=== PATIENT | male | born 1955 | race Caucasian/White ===

== ENCOUNTER 2017-12-05 17:20 | Observation (INO) | payer OTHER ==
[~2017-12-05] VITALS: Ht 175.3 cm; Wt 101.6 kg
[~2017-12-05 17:20] MED LIST: BYSTOLIC10 MG PO; COLCRYS0.6 MG PO; HYDROCODONE BIT1 T13 PO; LOSARTAN POTASS50 MG PO; NEXIUM 40MG40 MG PO; PERCOCET 325 MG1 TA2 PO; ROXICODONE5 MG PO; SIMVASTATIN40 MG PO; VENLAFAXINE H37.5 M1 PO; ZOCOR 40MG TAB40 MG PO
--- NOTE | 2017-12-05 18:46 | ED DYSPNEA/ASTHMA COMPLAINT ---
History of Present Illness General Chief Complaint: Upper Respiratory Sx/Fever Stated Complaint: COUGH/URI Source: patient Exam Limitations: no limitations Allergies Coded Allergies: No Known Allergies (12/05/17) Reconcile Medications Albuterol Sulfate (Proventil Hfa) 90 MCG HFA.AER.AD 2 PUF INH Q4 cough Azithromycin (Zithromax) 250 MG TABLET 1 DP PO AD bronchitis 2 the first day followed by 1 for days 2-5 Benzonatate 200 MG CAPSULE 1 CAP PO TIDPRN cough Chlordiazepoxide HCl 25 MG CAPSULE 2 CAP PO AD ETOH 2 TABS THREE TIMES DAILY DAY 1 2 TABS TWICE DAILY DAY 2 2 TABS ONCE DAILY DAY 3 Cyanocobalamin (Vitamin B-12) (Unknown Strength) TABLET (Unknown Dose) PO DAILY SUPPLEMENT (Reported) Ergocalciferol (Vitamin D2) (Vitamin D2) 50,000 UNIT CAPSULE 1 CAP PO QFRI SUPPLEMENT (Reported) Esomeprazole (Nexium) 40 MG CAPSULE.DR 1 CAP PO DAILY GI (Reported) Folic Acid 1 MG TABLET 1 TAB PO DAILY SUPPLEMENT (Reported) Losartan Potassium 100 MG TABLET 1 TAB PO DAILY HEART/BP (Reported) Metformin HCl 1,000 MG TABLET 1 TAB PO DAILY DM (Reported) Nebivolol HCl (Bystolic) 10 MG TABLET 1 TAB PO DAILY HEART/BP (Reported) Saw Hamilton Fruit (Saw Hamilton) (Unknown Strength) CAPSULE (Unknown Dose) PO BID (Reported) Triage Note: PT TO ED WITH FOR C/C OF COUGH X 2 WEEKS, OVER THE LAST COUPLE OF DAYS COUGHING UP BLOOD. -N/-V/-D. PT HAS HISTORY OF ESOPHAGECTOMY WITH AND HAS HAD BAD HICCUPS FOR ABOUT 2 DAYS. PT DIAPHORETIC AND TEMP 100.7 IN TRIAGE. DENIES CHEST PAIN. Triage Nurses Notes Reviewed? yes Onset: Abrupt Duration: week(s): (2), constant, continues in ED Timing: recent history HPI: 62-year-old male comes into the emergency room for further evaluation of shortness of breath and cough has been going on for the past 2 weeks. Symptoms have gotten progressively worse. Patient is now had hemoptysis over the last few days. He's had associated fever chills body aches. He's had increasing shortness of breath. He denies any chest pain. He has a prior history of 30- pack-year. History of esophageal cancer. Denies any other associated symptoms. (Wade Easton) Vital Signs & Intake/Output Vital Signs & Intake/Output Vital Signs Date Time Temp Pulse Resp B/P B/P Pulse O2 O2 Flow FiO2 Mean Ox Delivery Rate 12/06 0749 98.6 109 16 130/74 96 Room Air 12/06 0605 100.4 109 18 119/68 12/06 0602 100.4 109 18 119/68 96 12/06 0300 99.0 104 18 158/75 12/06 0253 99.0 104 18 158/75 96 12/06 0014 99.9 105 24 153/75 12/05 2301 99.3 107 22 155/88 95 12/05 2041 98.4 98 18 135/72 96 12/05 2013 97 ED Intake and Output 12/06 0000 12/05 1200 Intake Total 120 Output Total Balance 120 Intake, Oral 120 Patient 224 lb Weight Weight Reported by Patient Measurement Method (Kaushik TONY,Barrera Madison) Past History Travel History Traveled to [place] past 21 day No Medical History Any Pertinent Medical History? see below for history Neurological: NONE EENT: NONE Cardiovascular: hypertension, hyperlipidemia Respiratory: NONE Gastrointestinal: NONE Hepatic: NONE Renal: NONE Musculoskeletal: fracture Psychiatric: NONE Endocrine: NONE Blood Disorders: NONE Cancer(s): ESOPHAGEAL BUSINESS SYSTEMS ANALYST/Reproductive: NONE History of MRSA: No History of VRE: No History of CDIFF: No Pneumonia Vaccine: 11/12/11 Surgical History Surgical History: non-contributory Psychosocial History Who do you live with Spouse Services at Home None What is your primary language Telugu Tobacco Use: Quit >30 days ago ETOH Use: heavy use Illicit Drug Use: denies illicit drug use Family History Hx Contributory? No (Wade Eastno) Review of Systems Review of Systems Constitutional: Reports: no symptoms. EENTM: Reports: see HPI. Respiratory: Reports: see HPI. Cardiovascular: Reports: no symptoms. GI: Reports: no symptoms. Genitourinary: Reports: no symptoms. Musculoskeletal: Reports: no symptoms. Skin: Reports: no symptoms. Neurological/Psychological: Reports: no symptoms. Hematologic/Endocrine: Reports: no symptoms. Immunologic/Allergic: Reports: no symptoms. All Other Systems: Reviewed and Negative (Wade Easton) Physical Exam Physical Exam General Appearance: well developed/nourished, alert, awake Head: atraumatic, normal appearance Eyes: Bilateral: normal appearance. Ears, Nose, Throat: normal ENT inspection, hearing grossly normal Neck: normal inspection Respiratory: no respiratory distress, decreased breath sounds Cardiovascular: regular rate/rhythm Gastrointestinal: soft, non-tender Extremities: normal inspection Neurologic/Psych: awake, alert, oriented x 3 Skin: intact, normal color Core Measures ACS in differential dx? Yes CVA/TIA Diagnosis No Sepsis Present: No Sepsis Focused Exam Completed? No (Tez MCCONNELL,Wade) Progress Differential Diagnosis: asthma, AMI, altitude sickness, bronchitis, COPD, pulmonary embolism, pneumonia Diagnostic Imaging: Viewed by Me: Radiology Read, CT Scan. Discussed w/RAD: Radiology Read, CT Scan. Radiology Impression: PATIENT: EFREN NORRIS PRESENT AGE: 62 PATIENT ACCOUNT NO: [id number] : 57 LOCATION: [facility] ORDERING PHYSICIAN: Wade MCCONNELL SERVICE DATE: 12/05/17 EXAM TYPE: CAT - CTA CHEST-PULMONARY EMBOLISM EXAMINATION: CT PULMONARY EMBOLISM STUDY CLINICAL INFORMATION: Shortness breath. Elevated d-dimer. COMPARISON: 07/24/2016. TECHNIQUE: Contiguous helical images of the chest were obtained following the administration of IV contrast. Multiplanar reconstructions were performed. MIPS were obtained and reviewed. DLP: 566 mGy-cm. CONTRAST: 80 mL of Optiray 350 were administered without incident. FINDINGS: The heart is of normal size. There is no pericardial effusion. The great vessels are unremarkable. Specifically, there is no pulmonary arterial filling defect. There is no CT evidence for pulmonary embolism. There are no chest wall masses. Review of lung windows demonstrates that there are neither pleural effusions nor pneumothoraces. There are no consolidations. There are no pulmonary parenchymal nodules. The patient is status post gastric pull up. Postsurgical changes are stable. Limited evaluation of the upper abdomen demonstrates that the liver is of overall normal size. It is of heterogeneous attenuation manifested by numerous punctate symmetrically distributed subcentimeter areas of low attenuation. Normal adrenal glands are present. IMPRESSION: No CT evidence for pulmonary embolism. Irregular pattern of attenuation throughout the liver manifested by innumerable widely distributed subcentimeter areas of low attenuation, predominantly within the superior aspect of the liver. This has a appearance suggestive of peliosis, though no abnormality is identified on prior exams. Recommendation is for correlation with abdominal MRI with contrast for further characterization. DICTATED BY: Ej uTrner MD DATE/TIME DICTATED:12/05/172127 STRETCH MACHINE OPERATOR:SHEILA DATE/TIME TRANSCRIBED:12/05/172127 CONFIDENTIAL, DO NOT COPY WITHOUT APPROPRIATE AUTHORIZATION. <Electronically signed in Other Vendor System> SIGNED BY: Ej Turner MD 12/05/172141, PATIENT: EFREN NORRIS PRESENT AGE: 62 PATIENT ACCOUNT NO: [id number] : 57 LOCATION: [facility] ORDERING PHYSICIAN: Wade MCCONNELL SERVICE DATE: 12/05/17 EXAM TYPE : RAD - XRY-CHEST XRAY, TWO VIEWS EXAMINATION: CHEST 2 VIEWS CLINICAL INFORMATION: Cough, shortness of breath. COMPARISON: 07/24/2016. TECHNIQUE: PA and lateral views of the chest were obtained. FINDINGS: The cardiac silhouette is not enlarged. The mediastinal and hilar contours are unremarkable. There are neither pleural effusions nor pneumothoraces. There are no consolidations. The patient is status post gastric pull-through. That is demonstrated within the lower right hemithorax. The osseous structures are unremarkable. IMPRESSION: Postsurgical changes as stated above. No acute airspace disease. DICTATED BY: Ej Turner MD DATE/TIME DICTATED:12/05/171916 STRETCH MACHINE OPERATOR:SHEILA DATE/TIME TRANSCRIBED:12/05/171916 CONFIDENTIAL, DO NOT COPY WITHOUT APPROPRIATE AUTHORIZATION. <Electronically signed in Other Vendor System> SIGNED BY: Ej Turner MD 12/05/171920, PATIENT: EFREN NORRIS PRESENT AGE: 62 PATIENT ACCOUNT NO: [id number] : 57 LOCATION: [facility] ORDERING PHYSICIAN: Wade MCCONNELL SERVICE DATE: 12/05/172008 EXAM TYPE: CAT - CTA CHEST-PULMONARY EMBOLISM EXAMINATION: CT PULMONARY EMBOLISM STUDY CLINICAL INFORMATION: Shortness breath. Elevated d-dimer. COMPARISON: 07/24/2016. TECHNIQUE: Contiguous helical images of the chest were obtained following the administration of IV contrast. Multiplanar reconstructions were performed. MIPS were obtained and reviewed. DLP: 566 mGy- cm. CONTRAST: 80 mL of Optiray 350 were administered without incident. FINDINGS: The heart is of normal size. There is no pericardial effusion. The great vessels are unremarkable. Specifically, there is no pulmonary arterial filling defect. There is no CT evidence for pulmonary embolism. There are no chest wall masses. Review of lung windows demonstrates that there are neither pleural effusions nor pneumothoraces. There are no consolidations. There are no pulmonary parenchymal nodules. The patient is status post gastric pull up. Postsurgical changes are stable. Limited evaluation of the upper abdomen demonstrates that the liver is of overall normal size. It is of heterogeneous attenuation manifested by numerous punctate symmetrically distributed subcentimeter areas of low attenuation. Normal adrenal glands are present. IMPRESSION: No CT evidence for pulmonary embolism. Irregular pattern of attenuation throughout the liver manifested by innumerable widely distributed subcentimeter areas of low attenuation, predominantly within the superior aspect of the liver. This has a appearance suggestive of peliosis, though no abnormality is identified on prior exams. Recommendation is for correlation with abdominal MRI with contrast for further characterization. DICTATED BY: Ej Turner MD DATE/TIME DICTATED:2127 STRETCH MACHINE OPERATOR:SHEILA DATE/TIME TRANSCRIBED:12/05/172127 CONFIDENTIAL, DO NOT COPY WITHOUT APPROPRIATE AUTHORIZATION. <Electronically signed in Other Vendor System> SIGNED BY: Ej Turner MD 12/05/172141 Initial ED EKG: normal sinus rhythm, rate (101), peaked t waves Prior EKG: unchanged Comments: 12/06/2017 12:27:01 AM Patient declined any alcohol detox here. His CIWA score was 11. No history of seizure withdrawal. Patient started on oral Librium. Patient has some mildly peaked T waves but compared to prior EKG it appeared to be unchanged. His repeat potassium was 5.4. Patient is stable for discharge at this time. Patient has symptoms consistent with bronchitis. Patient covered with antibiotics. Follow-up with primary care doctor. Return if any other concerns worsening symptoms. Rest. Drink plenty of fluids. Reevaluated multiple times. 2 normal troponins. Patient did not have any chest pain here in the emergency room. Patient to not drink alcohol while taking the Librium. Patient was educated on his CAT scan and blood work. Patient was told that he needs a follow-up with gastric urologist and that he needs to stop drinking alcohol because he is causing damage to his liver. (Tez MCCONNELL,Wade) Plan of Care: Orders Procedure Date/time Status Heart Healthy Diet 12/06 B Active Discharge Patient 12/06 0633 Active POTASSIUM 12/[address] in observation 12/06 45 Active ED Holding Orders 12/06 45 Active Patient Data 12/06 45 Active Vital Signs 12/06 45 Active Code Status 12/06 45 Active CIWA 12/06 0004 Active Add-on Test (ER Only) 12/05 2320 Active TROPONIN LEVEL 12/05 2306 Complete BASIC METABOLIC PANEL 12/05 230 Complete Telemetry/Wound Care Technician 12/05 2002 Active Intake & Output 12/05 1954 Active VIRAL CULTURE 12/05 1855 Active Laboratory Tests 12/06/17 0600: 12/05/17 2324: Anion Gap 20 H, Estimated GFR > 60, BUN/Creatinine Ratio 48.9 H, Glucose 157 H, Calcium 8.6, Troponin I < 0.01 (Kaushik TONY,Barrera Madison) Departure Departure Disposition: HOME OR SELF CARE Condition: Stable Clinical Impression Primary Impression: Bronchitis Secondary Impressions: Alcoholism Referrals: Weston TONY,Robby Rodriguez (PCP/Family) Jeff Girmm MD Additional Instructions: Take Z-Rod, Tessalon Perles, and albuterol . Follow-up with PCP. Return if any concerns worsening symptoms. Take Librium as prescribed. Follow-up with mate fishing vessel. Follow-up with your PCP. stop drinking alcohol because it is causing damage to your liver. Please go over all results of today's visit with your primary care doctor. Contact your primary care doctor to let them know you were here in the emergency room. There may be nonspecific findings which may not be related to your visit today here in the emergency room but may require further evaluation and chronic monitoring by your primary care doctor. If you had a laceration today the chance of foreign body always remains. You should follow-up with your primary care doctor for recheck in 3-5 days for a wound check. If you had an x-ray done there is a chance that a fracture could have been missed on initial read and you should follow-up with your primary care doctor for repeat x-rays if symptoms persist. If your blood pressure was elevated here in the emergency room please have rechecked by [facility] primary care doctor within the next 48. If you were prescribed a narcotic here in the emergency room or any type of controlled substances you're not allowed to drive while taking this medication or operate any type of heavy machinery. Narcotics can make you feel lightheaded dizziness nausea and can cause constipation. You may need to bean picker machine operator a stool softener. Thank you for choosing [facility] emergency room. Please return to the emergency room immediately if you have any other concerns worsening of symptoms. Departure Forms: Customer Survey General Discharge Information Prescriptions: Current Visit Scripts Azithromycin (Zithromax) 1 DP PO AD #6 TAB 2 the first day followed by 1 for days 2-5 Benzonatate 1 CAP PO TIDPRN #30 CAP Albuterol Sulfate (Proventil Hfa) 2 PUF INH Q4 #1 INHAL Chlordiazepoxide HCl 2 CAP PO AD #12 CAP 2 TABS THREE TIMES DAILY DAY 1 2 TABS TWICE DAILY DAY 2 2 TABS ONCE DAILY DAY 3 (Wade Easton) PA/CUT TOBACCO BULKER Co-Sign Statement Statement: ED Attending supervision documentation- [X] I saw and evaluated the patient. I have also reviewed all the pertinent lab results and diagnostic results. I agree with the findings and the plan of care as documented in the PA's/CUT TOBACCO BULKER's documentation. [X]X I have reviewed the ED Record and agree with the PA's/CUT TOBACCO BULKER's documentation. [] Additions or exceptions (if any) to the PAs/CUT TOBACCO BULKER's note and plan are summarized below: [] (Kaushik TONY,Barrera Madison) Departure Comments 12/06/17 7 AM The patient was discharged by Dr. Faulkner. His ride came and he was taken home. (Dwight Cardoza DO) Critical Care Note Critical Care Note Critical Care Time: non-applicable (Wade Easton) ED Attending Observation Initial Observation Note: I have seen and personally examined EFREN NORRIS on 12/06/17 at 0047. I agree with the current emergency department documentation. The disposition (admission or discharge) is uncertain at this time, he needs a period of observation for the following reason(s): [Patient to be observed for possible alcohol withdrawal. Unknown at this time the patient will require admission at Hospital or to be stable for discharge.] The ED Nurse caring for this patient has been personally informed as to what the patient is being observed for. Observation Re-Evaluation: I have reevaluated JR,EFREN on 12/06/17 at 0313. The physical findings that support the continued need to observe this patient include [patient CIWA score is improving. Patient is still slightly tremulous. We'll continue to closely monitor. His lungs are clear to auscultation bilaterally with good air entry. Cardiac exam is regular rate and rhythm.]. Observation Discharge: I have reevaluated JR,EFREN on 12/06/17 at 0632. The patient is: (): Stable for discharge (): To be admitted to Nursing Floor (): To be placed in Observation on Nursing Floor (): For transfer to other facility The patient was being observed for [HYPERGLYCEMIA AND ALCOHOL WITHDRAWAL] As a result of that observation, I have determined [STABLE FOR DISCHAGE]. (Barrera Faulkner MD) observation for the following reason(s): [Patient to be observed for possible alcohol withdrawal. Unknown at this time the patient will require admission at Hospital or to be stable for discharge.] The ED Nurse caring for this patient has been personally informed as to what the patient is being observed for. Observation Re-Evaluation: I have reevaluated JR,EFREN on 12/06/17 at 0313. The physical findings that support the continued need to observe this patient include [patient CIWA score is improving. Patient is still slightly tremulous. We'll continue to closely monitor. His lungs are clear to auscultation bilaterally with good air entry. Cardiac exam is regular rate and rhythm.]. Observation Discharge: I have reevaluated JR,EFREN on 12/06/17 at 0632. The patient is: (): Stable for discharge (): To be admitted to Nursing Floor (): To be placed in Observation on Nursing Floor (): For transfer to other facility The patient was being observed for [HYPERGLYCEMIA AND ALCOHOL WITHDRAWAL] As a result of that observation, I have determined [STABLE FOR DISCHAGE]. (Barrera Faulkner MD)
[2017-12-05 19:17] LABS: ABSOLUTE BASOPHIL COUNT 0 /CUMM (0.0-0.2); ABSOLUTE EOSINOPHIL COUNT 0 /CUMM (0.0-0.7); ABSOLUTE GRANULOCYTE CT 10.3 /CUMM (1.4-6.5); ABSOLUTE LYMPH COUNT 0.3 /CUMM (1.2-3.4); ABSOLUTE MONOCYTE COUNT 0.5 /CUMM (0.10-0.60); BASOPHIL % 0.2 % (0.0-2.0); EOSINOPHIL % 0.1 % (0-5); MEAN CORPUSCULAR HGB 32.1 PG (27.0-31.0); MEAN CORPUSCULAR HGB CONC 33.7 G/DL (33.0-37.0); MEAN CORPUSCULAR VOLUME 95.2 FL (80.0-94.0); MEAN PLATELET VOLUME 9.2 FL (7.4-10.4); PLATELET COUNT 164 /CUMM (130-400); RBC DISTRIBUTION WIDTH 14.6 % (11.5-14.5); RED BLOOD CELL CT 3.99 /CUMM (4.70-6.10); WHITE BLOOD CELL COUNT 11.2 /CUMM (4.8-10.8)
--- NOTE | 2017-12-05 19:21 | RADIOLOGY REPORT ---
EXAMINATION: CHEST 2 VIEWS CLINICAL INFORMATION: Cough, shortness of breath. COMPARISON: 07/24/2016. TECHNIQUE: PA and lateral views of the chest were obtained. FINDINGS: The cardiac silhouette is not enlarged. The mediastinal and hilar contours are unremarkable. There are neither pleural effusions nor pneumothoraces. There are no consolidations. The patient is status post gastric pull-through. That is demonstrated within the lower right hemithorax. The osseous structures are unremarkable. IMPRESSION: Postsurgical changes as stated above. No acute airspace disease.
[2017-12-05 19:39] LABS: GRANULOCYTE % 92.1 % (42.2-75.2)
--- NOTE | 2017-12-05 21:42 | CT SCAN REPORT ---
EXAMINATION: CT PULMONARY EMBOLISM STUDY CLINICAL INFORMATION: Shortness breath. Elevated d-dimer. COMPARISON: 07/24/2016. TECHNIQUE: Contiguous helical images of the chest were obtained following the administration of IV contrast. Multiplanar reconstructions were performed. MIPS were obtained and reviewed. DLP: 566 mGy-cm. CONTRAST: 80 mL of Optiray 350 were administered without incident. FINDINGS: The heart is of normal size. There is no pericardial effusion. The great vessels are unremarkable. Specifically, there is no pulmonary arterial filling defect. There is no CT evidence for pulmonary embolism. There are no chest wall masses. Review of lung windows demonstrates that there are neither pleural effusions nor pneumothoraces. There are no consolidations. There are no pulmonary parenchymal nodules. The patient is status post gastric pull up. Postsurgical changes are stable. Limited evaluation of the upper abdomen demonstrates that the liver is of overall normal size. It is of heterogeneous attenuation manifested by numerous punctate symmetrically distributed subcentimeter areas of low attenuation. Normal adrenal glands are present. IMPRESSION: No CT evidence for pulmonary embolism. Irregular pattern of attenuation throughout the liver manifested by innumerable widely distributed subcentimeter areas of low attenuation, predominantly within the superior aspect of the liver. This has a appearance suggestive of peliosis, though no abnormality is identified on prior exams. Recommendation is for correlation with abdominal MRI with contrast for further characterization.
[2017-12-05] MEDS ORDERED: BYSTOLIC10 M1 PO (22:12)
[2017-12-05] MEDS ORDERED: FOLIC ACID1 M1 PO (22:13)
[2017-12-05] MEDS ORDERED: VITAMIN D250000 UNIT PO (22:13)
[2017-12-05] MEDS ORDERED: METFORMIN HCL1000 M1 PO (22:13)
[2017-12-05] MEDS ORDERED: SAW PALMETTO450 M1 PO (22:13)
[2017-12-05] MEDS ORDERED: LOSARTAN POTAS100 M1 PO (22:13)
[2017-12-05] MEDS ORDERED: NEXIUM40 M1 PO (22:13)
[2017-12-05] MEDS ORDERED: VITAMIN B-121000 MC3 PO (22:14)
[2017-12-05] MEDS ORDERED: ZITHROMAX250 M2 PO (23:21)
[2017-12-05] MEDS ORDERED: PROVENTIL HFA6.7 GM INH (23:21)
[2017-12-05] MEDS ORDERED: BENZONATATE200 M1 PO (23:21)
[2017-12-06 00:14] VITALS: BP 153/75
[2017-12-06] MEDS ORDERED: CHLORDIAZEPOXID25 M3 PO (00:26)
[2017-12-06 03:00] VITALS: BP 158/75
[2017-12-06 06:05] VITALS: BP 119/68
[2017-12-06 07:49] VITALS: BP 130/74
== END 2017-12-06 08:20 ==
LOC: ERH 17:20 → ERHI 12-06 00:46
PROVIDERS: Physician Assistant Medical
DX: J20.9 Acute bronchitis, unspecified (principal); Z87.891 Personal history of nicotine dependence; I10 Essential (primary) hypertension; E78.5 Hyperlipidemia, unspecified; Z85.01 Personal history of malignant neoplasm of esophagus; F10.20 Alcohol dependence, uncomplicated
CPT/HCPCS: 1263; 71046; 87804; 87804-59; 93005; 93010; 96360; G0378